=== PATIENT | female | born 1980 | race Caucasian/White ===

== ENCOUNTER 2018-02-05 20:35 | Emergency (ER) | payer BC ==
[~2018-02-05] VITALS: Ht 165.1 cm; Wt 61.8 kg
[2018-02-05 20:39] VITALS: BP 120/70; TEMP 98.3
[2018-02-05] MEDS ORDERED: PROBIOTIC ACID1 EAC3 PO (20:51)
[2018-02-05] MEDS ORDERED: MULTI VITAMINS1 TAB PO (20:51)
[2018-02-05] MEDS ORDERED: VITAMINE200 PO (20:52)
[2018-02-05] MEDS ORDERED: VITAMIND3 5000 PO (20:52)
[2018-02-05] MEDS ORDERED: VITAMIN C500 MG PO (20:53)
[2018-02-05 22:15] VITALS: PULSE 74
== END 2018-02-05 22:15 | disposition home or self-care (01) ==
LOC: COL.ER 20:35
DX: R09.89 Other specified symptoms and signs involving the circulatory and respiratory systems (principal)

== ENCOUNTER → 2019-07-12 | Outpatient (CLI) | payer BC ==
[~2019-07-12] MED LIST: MULTI VITAMINS1 TAB PO; PROBIOTIC ACID1 EAC3 PO; VITAMIN C500 MG PO; VITAMIND3 5000 PO; VITAMINE200 PO
== END ==
LOC: MC.RAD 13:49
DX: Z12.31 Encounter for screening mammogram for malignant neoplasm of breast (principal); Z98.82 Breast implant status